=== PATIENT | female | born 1990 | race Caucasian/White ===

== ENCOUNTER 2017-12-23 19:59 | Emergency (ER) | END 2017-12-23 21:32 | disposition home or self-care (01) ==

== ENCOUNTER 2017-12-26 00:43 | Emergency (ER) | END 2017-12-26 04:43 | disposition home or self-care (01) ==

== ENCOUNTER 2018-01-21 08:27 | Emergency (ER) | END 2018-01-21 10:17 | disposition home or self-care (01) ==

== ENCOUNTER 2018-02-15 11:15 | Emergency (ER) | END 2018-02-15 12:50 | disposition home or self-care (01) ==

== ENCOUNTER 2018-06-17 23:05 | Emergency (ER) | payer OTHER ==
[~2018-06-17] VITALS: Ht 160 cm; Wt 64.0 kg
[~2018-06-17 23:05] MED LIST: BEN25 PO; CEPH-443 PO; IBUP-1542 PO; RANI150T35 PO; SUCR1TAB56 PO; SULF1TAB31 PO
[2018-06-17 23:18] VITALS: Ht 160 cm; Wt 64.0 kg
[2018-06-18] MEDS ORDERED: CLIN300C10 PO (02:10)
--- NOTE | 2018-06-18 02:17 | ERD ---
ER Documentation Chief Complaint Chief Complaint ST,bilat ear pain started last night,fever HPI Patient is presenting with complaints of sore throat that started last night with left-sided ear pain. She states that within the past few months she has already had 2 episodes of strep throat that have been treated with outpatient antibiotics. She improves with antibiotics. She is also complaining of fevers and chills. Pain is aching, burning, constant, radiating to left ear, worse with swallowing, 7 out of 10. No runny nose, sneezing, cough, shortness of breath. ROS All systems reviewed and are negative except as per history of present illness. Medications Home Meds Active Scripts Clindamycin Hcl* (Clindamycin Hcl*) 300 Mg Capsule, 300 MG PO TID for 10 Days, CAP Prov:BRENNAN NIELSON MD 06/18/18 Ibuprofen* (Motrin*) 600 Mg Tab, 600 MG PO Q6, #30 TAB Prov:DELANO GROVES PA-C 02/15/18 Sulfamethoxazole/Trimethoprim* (Bactrim Ds* Tablet) 1 Each Tablet, 1 TAB PO BID for 7 Days, #14 TAB Prov:DELANO GROVES PA-C 02/15/18 Cephalexin* (Keflex*) 500 Mg Capsule, 500 MG PO QID for 10 Days, CAP Prov:DELANO GROVESC 02/15/18 Ibuprofen* (Motrin*) 600 Mg Tab, 600 MG PO Q6H PRN for PAIN AND OR ELEVATED TEMP, #30 TAB Prov:KINGSTON BYRD NP 01/21/18 Cephalexin* (Keflex*) 500 Mg Capsule, 500 MG PO QID for 7 Days, CAP Prov:KINGSTON BYRD NP 01/21/18 Sulfamethoxazole/Trimethoprim* (Bactrim Ds* Tablet) 1 Each Tablet, 1 TAB PO BID for 7 Days, #14 TAB Prov:DELNAO GROVES PA-C 12/26/17 Ibuprofen* (Motrin*) 600 Mg Tab, 600 MG PO Q6, #30 TAB Prov:EFRAIN CHENEY PA-C 12/23/17 Diphenhydramine Hcl* (Benadryl*) 25 Mg Cap, 25 MG PO Q6, #30 CAP Prov:EFRAIN CHENEY PA-C 12/23/17 Cephalexin* (Keflex*) 500 Mg Capsule, 500 MG PO QID for 7 Days, CAP Prov:EFRAIN CHENEY PA-C 12/23/17 Ranitidine Hcl* (Zantac*) 150 Mg Tablet, 150 MG PO BID PRN for EPIGASTRIC PAIN, #30 TAB Prov:LEILANI MEDINA. 10/31/15 Sucralfate* (Carafate*) 1 Gm Tab, 1 GM PO QID, #60 TAB Prov:LEILANI MEDINA. 10/31/15 Allergies Allergies: Coded Allergies: Penicillins (Verified Allergy, Unknown, 01/21/18) PMhx/Soc History of Surgery: Yes (c section) Anesthesia Reaction: No Hx Neurological Disorder: No Hx Respiratory Disorders: No Hx Cardiac Disorders: No Hx Psychiatric Problems: No Hx Miscellaneous Medical Probl: No Hx Alcohol Use: Yes (occassional) Hx Substance Use: No Hx Tobacco Use: No Smoking Status: Current every day smoker FmHx Family History: No diabetes Physical Exam Vitals Vital Signs Date Temp Pulse Resp B/P (MAP) Pulse Ox O2 O2 Flow FiO2 Time Delivery Rate 06/17/18 102.3 132 18 140/77 95 23:18 (98) Physical Exam Const: No acute distress Head: Atraumatic Eyes: Normal Conjunctiva ENT: Normal External Ears, Nose and Mouth. Normal phonation. Posterior oropharynx with erythema and left sided tonsillar exudate. No peritonsillar swelling. No uvular deviation. TMs normal bilaterally Neck: Full range of motion. No meningismus. Left-sided cervical lymphadenopathy Resp: Clear to auscultation bilaterally Cardio: Tachycardic with regular rhythm, no murmurs Abd: Soft, non tender, non distended. Normal bowel sounds Skin: No petechiae or rashes Back: No midline or flank tenderness Ext: No cyanosis, or edema Neur: Awake and alert Psych: Normal Mood and Affect Results 24 hrs Current Medications Medications Dose Sig/Steph Start Time Status Last (Trade) Ordered Route PRN Stop Time Admin Dose Reason Admin Ibuprofen 600 mg ONCE ONCE 06/18/18 (Motrin) PO 02:30 06/18/18 02:31 Lidocaine 15 ml ONCE ONCE 06/18/18 (Xylocaine PO 02:30 (Viscous)) 06/18/18 02:31 Procedures/MDM Patient is presenting with exudative pharyngitis, possibly bacterial tonsillitis. Given she has had this in the past and antibiotics have worked for her, she most likely has a strep infection. Swabs of the throat were sent and are pending. Patient will be treated with clindamycin outpatient. I recommended follow-up with PCP for a referral to an ear nose and throat doctor given her frequent episodes of exudative pharyngitis within the past few months. Patient's blood pressure was elevated (>120/80) but appears stable without evidence of hypertension emergency or urgency. The patient was counseled about the risks of hypertension and urged to pursue outpatient monitoring and therapy within a week with their primary care physician. Departure Diagnosis: Primary Impression: Exudative pharyngitis Condition: Stable Patient Instructions: Pharyngitis, Strep (Presumed) Referrals: [facility] YOU HAVE RECEIVED A MEDICAL SCREENING EXAM AND THE RESULTS INDICATE THAT YOU DO NOT HAVE A CONDITION THAT REQUIRES URGENT TREATMENT IN THE EMERGENCY DEPARTMENT. FURTHER EVALUATION AND TREATMENT OF YOUR CONDITION CAN WAIT UNTIL YOU ARE SEEN IN YOUR DOCTORS OFFICE WITHIN THE NEXT 1-2 DAYS. IT IS YOUR RESPONSIBILITY TO MAKE AN APPOINTMENT FOR FOLOW-UP CARE. IF YOU HAVE A PRIMARY DOCTOR --you should call your primary doctor and schedule an appointment IF YOU DO NOT HAVE A PRIMARY DOCTOR YOU CAN CALL OUR PHYSICIAN REFERRAL HOTLINE AT IF YOU CAN NOT AFFORD TO SEE A PHYSICIAN YOU CAN CHOSE FROM THE FOLLOWING [facility] [address] [facility]. [facility] [address] [facility] [place] [employer] [facility]. [facility] [address] [facility]. [facility] [address] [facility]. [facility] [address] [facility]. [facility]. [address] Additional Instructions: I recommend you follow-up with your primary care doctor for referral to an ear nose and throat doctor, also called an high climber, given you are having multiple episodes of strep throat. Throat cultures have been sent and are in process. You will be called if there are any abnormal results other than strep. BRENNAN NIELSON MD Jun 18, 2018 02:17
[2018-06-18] MEDS ORDERED: IBUPROFEN 600 MG TAB PO ONE (02:30)
[2018-06-18] MEDS ORDERED: LIDOCAINE 2% VISC 15 ML CUP PO ONE (02:30)
[2018-06-18 02:36] VITALS: BP 142/81; PULSE 70; RESP 18
== END 2018-06-18 02:37 | disposition home or self-care (01) ==
LOC: E/R 23:05
DX: J02.9 Acute pharyngitis, unspecified (principal); F17.210 Nicotine dependence, cigarettes, uncomplicated
CPT/HCPCS: 87070; 87880; Z7502; Z7610; 99283